=== PATIENT | male | born 1950 | race Two or more races ===

== ENCOUNTER 2024-09-18 13:49 | Outpatient (CLI) | payer MEDICARE, BC | END 2024-09-18 23:59 | disposition home health service (06) | LOC: WOU 13:49 | PROVIDERS: ATTEND Student in an Organized Health Care Education/Training Program | DX: E11.621 Type 2 diabetes mellitus with foot ulcer (principal); L97.526 Non-pressure chronic ulcer of other part of left foot with bone involvement without evidence of necrosis; E11.40 Type 2 diabetes mellitus with diabetic neuropathy, unspecified; M10.9 Gout, unspecified; Z79.84 Long term (current) use of oral hypoglycemic drugs; I10 Essential (primary) hypertension | CPT/HCPCS: 11043 ==

== ENCOUNTER 2025-04-23 10:34 | Outpatient (CLI) | payer MEDICARE, BC ==
[2025-04-23] MEDS ORDERED: CADEXOMER IODINE UD 5 GM TUBE ONE (10:48)
== END 2025-04-23 23:59 | disposition home health service (06) ==
LOC: WOU 10:34
PROVIDERS: ATTEND Student in an Organized Health Care Education/Training Program
DX: E11.621 Type 2 diabetes mellitus with foot ulcer (principal); L97.422 Non-pressure chronic ulcer of left heel and midfoot with fat layer exposed; L97.522 Non-pressure chronic ulcer of other part of left foot with fat layer exposed; L97.512 Non-pressure chronic ulcer of other part of right foot with fat layer exposed; E11.40 Type 2 diabetes mellitus with diabetic neuropathy, unspecified; Z79.84 Long term (current) use of oral hypoglycemic drugs
CPT/HCPCS: 11042

== ENCOUNTER 2025-05-07 10:34 | Outpatient (CLI) | payer MEDICARE, BC ==
[2025-05-07] MEDS ORDERED: CADEXOMER IODINE UD 5 GM TUBE ONE (11:01)
== END 2025-05-07 23:59 | disposition home health service (06) ==
LOC: WOU 10:34
PROVIDERS: ATTEND Student in an Organized Health Care Education/Training Program
DX: E11.621 Type 2 diabetes mellitus with foot ulcer (principal); L97.422 Non-pressure chronic ulcer of left heel and midfoot with fat layer exposed; L97.522 Non-pressure chronic ulcer of other part of left foot with fat layer exposed; L97.512 Non-pressure chronic ulcer of other part of right foot with fat layer exposed; E11.40 Type 2 diabetes mellitus with diabetic neuropathy, unspecified; Z79.84 Long term (current) use of oral hypoglycemic drugs
CPT/HCPCS: 15275; 11042; Q4196